=== PATIENT | male | born 1995 | race Caucasian/White ===

== ENCOUNTER 2016-11-04 17:08 | Emergency (ER) | payer OTHER ==
[2016-11-04] MEDS ORDERED: ACETAMINOPHEN 325 MG TAB As Ordered ONE (17:50)
[2016-11-04] MEDS ORDERED: tiZANidine 4 MG TAB As Ordered ONE (17:50)
--- NOTE | 2016-11-04 19:31 | EDDOCDS ---
Physician Documentation [facility] Name: Bharathi Johnson Age: 20 yrs Sex: Male : 1995 Arrival Date: 11/04/2016 Time: 17:08 Bed TR8 Private MD: NO PRIMARY PHYSICIAN, . Disposition: 11/04/16 18:34 Discharged to Home/Self Care. Impression: Low back pain. - Condition is Stable. - Prescriptions for Zanaflex 4 mg Oral Tablet - take 1 tablet by ORAL route every 8 hours As needed; 20 tablet. Cyclobenzaprine 10 mg Oral Tablet - take 1 tablet by ORAL route 3 times per day As needed; 15 tablet. - Medication Reconciliation, Local Pharmacy Hours form. - Follow up: Giovani Farr [facility]; When: 2 - 3 days; Reason: Recheck today's complaints, Continuance of care. Follow up: Emergency Department; When: As needed; Reason: Worsening of conditions. - Problem is new. - Symptoms have improved. Historical: - Allergies: No known drug Allergies; - Home Meds: 1. none - PMHx: none; - PSHx: Appendectomy; - Immunization history: Last tetanus immunization: - up to date. - Social history: Smoking status: Patient states was never smoker of tobacco. No barriers to communication noted, The patient speaks fluent Senegalese, Speaks appropriately for age, Smoking status: Patient states was never smoker of tobacco. - Last oral intake was: pizza 1200. - : The pt / caregiver states he / she is not on anticoagulants. Home medication list is obtained from the patient. - Exposure Risk Screening:: None identified. Vital Signs: 11/04 17:10 BP 135 / 67; Pulse 64; Resp 17; Temp 97.7(T); Pulse Ox 100% on R/A; Weight 72.57 kg / lr2 159.99 lbs (R); Height 5 ft. 6 in. (167.64 cm) (R); 18:51 BP 117 / 67; Pulse 64; Resp 18; Temp 98.1(TE); Pulse Ox 98% on R/A; Pain 4/10; dem1 17:10 Body Mass Index 25.82 (72.57 kg, 167.64 cm) lr2 Trauma Score (Adult): 17:27 Eye Response: spontaneous(1); Verbal Response: oriented(1); Motor Response: obeys kpj commands(2); Systolic BP: > 89 mm Hg(4); Respiratory Rate: 10 to 29 per min(4); Anam Score: 15; Trauma Score: 12 MDM: 17:43 Acetaminophen Tablet 650 mg PO once ordered. dk1 17:43 tiZANidine 4 mg PO once ordered. dk1 17:44 Spine. Lumbosacral, Complete Ordered. EDMS 18:11 Financial registration complete. 18:12 [facility] Payment Agreement was scanned into [email or web address] and attached to record. gb Administered Medications: 17:54 Drug: Acetaminophen 650 mg [acetaminophen 325 mg tablet (2 tabs)] Route: PO; srm 17:54 Drug: tiZANidine 4 mg [tizanidine 4 mg tablet (1 tabs)] Route: PO; srm Signatures: Dispatcher [employer] EDRI Sonia Payne RN RN kpj Zecher, Calvin, RN RN cz Barnhardt, Gloria, Jim Acosta, PA-C PA-Odette Molina RN srm The chart was reviewed and I authenticate all verbal orders and agree with the evaluation and treatment provided.Attachments: 18:12 [facility] Payment Agreement gb MTDD
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
--- NOTE | 2016-11-06 20:31 | EDDOCDS ---
Physician Documentation [facility] Name: Bharathi Johnson Age: 20 yrs Sex: Male : 1995 Arrival Date: 11/04/2016 Time: 17:08 Bed TR8 Private MD: NO PRIMARY PHYSICIAN, . Disposition: 11/04/16 18:34 Discharged to Home/Self Care. Impression: Low back pain. - Condition is Stable. - Prescriptions for Zanaflex 4 mg Oral Tablet - take 1 tablet by ORAL route every 8 hours As needed; 20 tablet. Cyclobenzaprine 10 mg Oral Tablet - take 1 tablet by ORAL route 3 times per day As needed; 15 tablet. - Medication Reconciliation, Local Pharmacy Hours form. - Follow up: Giovani Farr [facility]; When: 2 - 3 days; Reason: Recheck today's complaints, Continuance of care. Follow up: Emergency Department; When: As needed; Reason: Worsening of conditions. - Problem is new. - Symptoms have improved. Historical: - Allergies: No known drug Allergies; - Home Meds: 1. none - PMHx: none; - PSHx: Appendectomy; - Immunization history: Last tetanus immunization: - up to date. - Social history: Smoking status: Patient states was never smoker of tobacco. No barriers to communication noted, The patient speaks fluent Beninese, Speaks appropriately for age, Smoking status: Patient states was never smoker of tobacco. - Last oral intake was: pizza 1200. - : The pt / caregiver states he / she is not on anticoagulants. Home medication list is obtained from the patient. - Exposure Risk Screening:: None identified. Vital Signs: 11/04 17:10 BP 135 / 67; Pulse 64; Resp 17; Temp 97.7(T); Pulse Ox 100% on R/A; Weight 72.57 kg / lr2 159.99 lbs (R); Height 5 ft. 6 in. (167.64 cm) (R); 18:51 BP 117 / 67; Pulse 64; Resp 18; Temp 98.1(TE); Pulse Ox 98% on R/A; Pain 4/10; dem1 17:10 Body Mass Index 25.82 (72.57 kg, 167.64 cm) lr2 Trauma Score (Adult): 17:27 Eye Response: spontaneous(1); Verbal Response: oriented(1); Motor Response: obeys kpj commands(2); Systolic BP: > 89 mm Hg(4); Respiratory Rate: 10 to 29 per min(4); Anam Score: 15; Trauma Score: 12 MDM: 17:43 Acetaminophen Tablet 650 mg PO once ordered. dk1 17:43 tiZANidine 4 mg PO once ordered. dk1 17:44 Spine. Lumbosacral, Complete Ordered. EDIA 18:11 Financial registration complete. gb 18:12 [facility] Payment Agreement was scanned into [employer] and attached to record. gb 22:30 T-Sheet-- Draft Copy was scanned into [employer] and attached to record. klr Administered Medications: 17:54 Drug: Acetaminophen 650 mg [acetaminophen 325 mg tablet (2 tabs)] Route: PO; srm 17:54 Drug: tiZANidine 4 mg [tizanidine 4 mg tablet (1 tabs)] Route: PO; srm Signatures: Dispatcher [employer] EDIA Sonia Payne RN RN kpj Zecher, Calvin, RN RN cz Barnhardt, Gloria, Reg Reg Jim Godwin, HARRISON PAFanta Urbina Staci RN srm The chart was reviewed and I authenticate all verbal orders and agree with the evaluation and treatment provided.Attachments: 18:12 [facility] Payment Agreement gb 22:30 T-Sheet-- Draft Copy klr Chart Complete MTDD
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
--- NOTE | 2016-11-06 20:31 | EDDOCDS ---
Physician Documentation [facility] Name: Bharathi Johnson Age: 20 yrs Sex: Male : 1995 Arrival Date: 11/04/2016 Time: 17:08 Bed TR8 Private MD: NO PRIMARY PHYSICIAN, . Disposition: 11/04/16 18:34 Discharged to Home/Self Care. Impression: Low back pain. - Condition is Stable. - Prescriptions for Zanaflex 4 mg Oral Tablet - take 1 tablet by ORAL route every 8 hours As needed; 20 tablet. Cyclobenzaprine 10 mg Oral Tablet - take 1 tablet by ORAL route 3 times per day As needed; 15 tablet. - Medication Reconciliation, Local Pharmacy Hours form. - Follow up: Giovani Farr [facility]; When: 2 - 3 days; Reason: Recheck today's complaints, Continuance of care. Follow up: Emergency Department; When: As needed; Reason: Worsening of conditions. - Problem is new. - Symptoms have improved. Historical: - Allergies: No known drug Allergies; - Home Meds: 1. none - PMHx: none; - PSHx: Appendectomy; - Immunization history: Last tetanus immunization: - up to date. - Social history: Smoking status: Patient states was never smoker of tobacco. No barriers to communication noted, The patient speaks fluent [place] Islander, Speaks appropriately for age, Smoking status: Patient states was never smoker of tobacco. - Last oral intake was: pizza 1200. - : The pt / caregiver states he / she is not on anticoagulants. Home medication list is obtained from the patient. - Exposure Risk Screening:: None identified. Vital Signs: 11/04 17:10 BP 135 / 67; Pulse 64; Resp 17; Temp 97.7(T); Pulse Ox 100% on R/A; Weight 72.57 kg / lr2 159.99 lbs (R); Height 5 ft. 6 in. (167.64 cm) (R); 18:51 BP 117 / 67; Pulse 64; Resp 18; Temp 98.1(TE); Pulse Ox 98% on R/A; Pain 4/10; dem1 17:10 Body Mass Index 25.82 (72.57 kg, 167.64 cm) lr2 Trauma Score (Adult): 17:27 Eye Response: spontaneous(1); Verbal Response: oriented(1); Motor Response: obeys kpj commands(2); Systolic BP: > 89 mm Hg(4); Respiratory Rate: 10 to 29 per min(4); Anam Score: 15; Trauma Score: 12 MDM: 17:43 Acetaminophen Tablet 650 mg PO once ordered. dk1 17:43 tiZANidine 4 mg PO once ordered. dk1 17:44 Spine. Lumbosacral, Complete Ordered. EDUT 18:11 Financial registration complete. gb 18:12 [facility] Payment Agreement was scanned into [employer] and attached to record. gb 22:30 T-Sheet-- Draft Copy was scanned into [employer] and attached to record. klr Administered Medications: 17:54 Drug: Acetaminophen 650 mg [acetaminophen 325 mg tablet (2 tabs)] Route: PO; srm 17:54 Drug: tiZANidine 4 mg [tizanidine 4 mg tablet (1 tabs)] Route: PO; srm Signatures: Dispatcher [employer] EDUT Sonia Payne RN RN kpj Zecher, Calvin, RN RN cz Barnhardt, Gloria, Reg Reg Jim Godwin, HARRISON PAFanta Urbina Staci RN srm The chart was reviewed and I authenticate all verbal orders and agree with the evaluation and treatment provided.Attachments: 18:12 [facility] Payment Agreement gb 22:30 T-Sheet-- Draft Copy klr Chart Complete MTDD
== END 2016-11-04 19:30 | disposition home or self-care (01) ==
LOC: M ED 17:08
DX: M54.5 Low back pain (principal); V47.5XXA Car driver injured in collision with fixed or stationary object in traffic accident, initial encounter; Y92.410 Unspecified street and highway as the place of occurrence of the external cause; Y93.89 Activity, other specified; Y99.8 Other external cause status; Z90.89 Acquired absence of other organs